=== PATIENT | male | born 1940 | race Two or more races ===

== ENCOUNTER 2019-11-01 02:41 | Emergency (ER) | payer OTHER ==
[~2019-11-01] VITALS: Ht 165.1 cm; Wt 113.4 kg
[2019-11-01 03:59] LABS: Basophils # (auto) 0.1 uL; Eosinophils # (auto) 0.2 uL; Hemoglobin 12.6 g/dL (13.5-17.5); Mean Corpuscular Volume 89.5 fL (80.0-100.0); Monocytes # (auto) 0.6 uL; Neutrophils # (auto) 3.6 uL; White Blood Cell 5.6 10^3/uL (4.4-10.8)
[2019-11-01 04:02] LABS: Basophils % (auto) 1.2 % (0.0-2.0); Eosinophils % (auto) 4.2 % (0.0-7.0); Hematocrit 37.9 % (41.0-53.0); Lymphocytes # (auto) 1.1 uL; Lymphocytes % (auto) 20.2 % (10.0-50.0); Mean Corpuscular Hemoglobin 29.7 pg (28.0-32.0); Mean Corpuscular Hgb Conc. 33.2 g/dL (32.0-36.0); Monocytes % (auto) 10.5 % (0.0-12.0); Neutrophils % (auto) 63.9 % (37.0-80.0); Platelet Count (auto) 55 10^3/uL (140-450); Red Blood Cells 4.23 10^6/uL (4.5-5.90); Red Cell Distribution Width 14.2 % (11.8-14.3)
[2019-11-01 04:16] LABS: INR 1.04 (0.9-1.15); Partial Thromboplastin Time 24.8 sec (23.64-32.05)
[2019-11-01 04:20] LABS: Albumin 3.2 g/dL (3.4-5.0); Calcium 8.2 mg/dL (8.5-10.1); Potassium 4.6 mmol/L (3.5-5.1)
[2019-11-01 04:26] LABS: BUN/Creatinine Ratio 18.6; Bilirubin, Total 0.2 mg/dL (0.2-1.0); Total Protein 6.5 g/dL (6.4-8.2)
[2019-11-01] MEDS ORDERED: IOHEXOL 300 MG/ML 100ML BOTTLE IJ ONE (06:08)
[2019-11-01] MEDS ORDERED: FERROUS SULFATE 325 MG TAB PO ONE (06:30)
[2019-11-01 07:25] VITALS: BP 148/77
[2019-11-01] MEDS ORDERED: LIDOCAINE W/ EPINEPHRINE 1% 20ML VIAL ONE (08:40)
[2019-11-01] MEDS ORDERED: LIDOCAINE VISCOUS 2% 15ML UD ONE (09:19)
[2019-11-01] MEDS ORDERED: LIDOCAINE VISCOUS 2% 15ML UD MT ONE (09:30)
== END 2019-11-01 09:26 | disposition home or self-care (01) ==
LOC: ER 02:45
DX: K14.8 Other diseases of tongue (principal); D64.9 Anemia, unspecified; I50.9 Heart failure, unspecified; E11.9 Type 2 diabetes mellitus without complications; E78.5 Hyperlipidemia, unspecified
CPT/HCPCS: 36415; 70491; 80053; 85025; 85610; 85730; 99284; Q9967